=== PATIENT | male | born 1990 | race Caucasian/White ===

== ENCOUNTER 2024-01-09 14:31 | Emergency (ER) | payer MEDICAID, SELFPAY ==
[2024-01-09 14:41] VITALS: BP 138/84; PULSE 80; RESP 18; TEMP 36.7; O2SAT 97; BMI 31.7
[2024-01-09 15:31] LABS: PCR FLU A Negative PCR FLU A (Negative); PCR FLU B POSITIVE PCR FLU B (Negative); PCR RSV Negative PCR RSV (Negative); SARS PCR* Negative SARS-CoV-2 (Negative)
--- NOTE | 2024-01-09 16:38 | ED_ITS ---
HPI - General Adult General Date Seen: 01/09/24 Chief complaint: Cough Stated complaint: congestion, fever Time Seen by Provider: 01/09/24 14:39 Source: patient and RN notes reviewed Mode of arrival: ambulatory Limitations: no limitations History of Present Illness HPI narrative: Patient is a 33-year-old male who presents with upper respiratory symptoms, cough, congestion, fever for several days. His significant other is similarly sick. They wanted to rule out COVID and influenza. He does have underlying asthma, he says he has been using his albuterol inhaler frequently. He has Adv air prescribed as well. He does smoke, says he has not been smoking very much in the past couple days. Related Data Home Medications Medication Instructions Recorded Confirmed albuterol sulfate 90 mcg/actuation 1 - 2 puff inhalation Q4H PRN 08/10/23 08/10/23 aerosol inhaler (Ventolin HFA) wheezing cetirizine 10 mg tablet 10 mg PO DAILY 08/10/23 08/10/23 fluticasone 500 mcg-salmeterol 50 1 ea inhalation BID 08/10/23 08/10/23 mcg/dose blistr powdr for inhalation (Advair Diskus) omeprazole 20 mg capsule,delayed 20 mg PO DAILY 08/10/23 08/10/23 release tiotropium bromide 18 mcg capsule 1 cap inhalation DAILY 08/10/23 08/10/23 with inhalation device (Spiriva with HandiHaler) Allergies Allergy/AdvReac Type Severity Reaction Status Date / Time No Known Drug Allergies Allergy Verified 08/10/23 12:49 Review of Systems Status of ROS: Reports: 6 or more systems reviewed and unremarkable except as noted in History and below Exam Narrative: Exam Narrative: Vital signs as noted above. In general, an alert, well-appearing patient. Smells of cigarette smoke. Head: Normocephalic, atraumatic. Eyes: Pupils are equal reactive. Extraocular movements are full. Conjunctivae are normal. ENT: Mucous membranes are moist. Neck: Supple without lymphadenopathy. Heart: Regular rate and rhythm. No murmur or rub. Lungs: Occasional scattered wheeze, no increased work of breathing. No crackles. Neurologic: Patient is alert and oriented to person and place. Speech is fluent. Face is symmetric. Moves all extremities equally. Affect: Normal. Skin: Warm and dry. Well perfused. Const: Vital Signs, click to edit/add: Vital Signs - 24 hr 01/09/24 14:41 Temperature 98.1 F Pulse Rate [Right Pulse Oximeter] 80 Respiratory Rate 18 Blood Pressure [Ri ght Upper Arm] 138/84 Pulse Oximetry 97 Oxygen Delivery Me thod Room Air Documenting provider has reviewed patient's vital signs: yes Course Course ED Course: Influenza B is positive, other testing is negative. Reviewed this with the patient. Offered prednisone, he says he does not take prednisone as it gives him chest pain. Encouraged him to make sure he is taking his Advair as prescribed, use albuterol as needed, and return for worsening respiratory symptoms. At this time, he does not appear to be in any respiratory distress, O2 sats are good, symptoms have been present for several days and I do not see an indication for Tamiflu. Supportive care. Return for worsening, see primary care if not improved in 7-10 days. Vital Signs Vital signs: Initial Vital Signs Temperature 98.1 F 01/09/24 14:41 Temperature Source Temporal Artery Scan 01/09/24 14:41 Pulse Rate 80 01/09/24 14:41 Respiratory Rate 18 01/09/24 14:41 Blood Pressure 138/84 01/09/24 14:41 Blood Pressure Mean 102 01/09/24 14:41 Blood Pressure Position Sitting 01/09/24 14:41 Pulse Oximetry 97 01/09/24 14:41 Oxygen Delivery Method Room Air 01/09/24 14:41 Vital Signs Temperature 98.1 F 01/09/24 14:41 Pulse Rate 80 01/09/24 14:41 Respiratory Rate 18 01/09/24 14:41 Blood Pressure 138/84 01/09/24 14:41 Pulse Oximetry 97 01/09/24 14:41 Oxygen Delivery Method Room Air 01/09/24 14:41 Temperature 98.1 F 01/09/24 14:41 Pulse Rate 80 01/09/24 14:41 Respiratory Rate 18 01/09/24 14:41 Blood Pressure 138/84 01/09/24 14:41 Pulse Oximetry 97 01/09/24 14:41 Oxygen Delivery Method Room Air 01/09/24 14:41 Medical Decision Making Lab Data Labs: Lab Results 01/09/24 Range/Units Unknown SARS-CoV-2 (PCR) Negative SARS-CoV-2 (Negative) Influenza Type A (PCR) Negative PCR FLU A (Negative) Influenza Type B (PCR) POSITIVE PCR FLU B A (Negative) RSV (PCR) Negative PCR RSV (Negative) Discharge Plan Discharge Clinical Impression: Influenza B Patient Disposition: Home, Self-Care Condition: Stable Instructions: Influenza (ED) Additional Instructions: Testing is positive for influenza. Influenza is viral, does not require specific treatment. You are outside the window for any benefit from Tamiflu. Make sure you are taking your Advair in addition to albuterol. Anticipate gradual improvement in 7-10 days. Ibuprofen and/or Tylenol as needed. Return for worsening. Prescriptions: No Action tiotropium bromide [Spiriva with HandiHaler] 18 mcg capsule, w/inhalation device 1 cap inhalation DAILY omeprazole 20 mg capsule,delayed release(DR/EC) 20 mg PO DAILY albuterol sulfate [Ventolin HFA] 90 mcg/actuation HFA aerosol inhaler 1 - 2 puff inhalation Q4H PRN (Reason: wheezing) fluticasone propion-salmeterol [Advair Diskus] 500-50 mcg/dose blister with device 1 ea inhalation BID cetirizine 10 mg tablet 10 mg PO DAILY Follow Up/Referrals: Provider,Not a Local [Primary Care Provider] - Stand Alone Forms: Thrill On Info Instructions
== END 2024-01-09 16:19 | disposition home or self-care (01) ==
PROVIDERS: Emergency Provider Emergency Medicine
DX: J10.1 Influenza due to other identified influenza virus with other respiratory manifestations (principal)
CPT/HCPCS: 87631; 99282; 99283; 99284